=== PATIENT | female | born 1970 | race Two or more races ===

== ENCOUNTER 2021-05-27 10:46 | Emergency (ER) | payer MEDICAID, OTHER ==
[~2021-05-27] VITALS: Ht 167.6 cm; Wt 85.7 kg
[2021-05-27 12:10] LABS: Basophils # (auto) 0 10 ^3/uL (0-0.2); Eosinophils # (auto) 0.1 10 ^3/uL (0-0.8); Eosinophils % (auto) 3.2 % (0.0-7.0); Hematocrit 42.4 % (36.0-46.0); Hemoglobin 14.1 g/dL (12.2-16.2); Lymphocytes # (auto) 1.7 10 ^3/uL (0.4-5.4); Lymphocytes % (auto) 39.5 % (10.0-50.0); Mean Corpuscular Hemoglobin 29.3 pg (28.0-32.0); Mean Corpuscular Hgb Conc. 33.2 g/dL (32.0-36.0); Mean Corpuscular Volume 88.3 fL (80.0-100.0); Monocytes # (auto) 0.3 10 ^3/uL (0-1.3); Monocytes % (auto) 7.9 % (0.0-12.0); Neutrophils # (auto) 2.1 10 ^3/uL (1.6-8.6); Neutrophils % (auto) 48.4 % (37.0-80.0); Nucleated Red Blood Cells % 0.2 %; Red Blood Cells 4.81 10^6/uL (4.0-5.20); Red Cell Distribution Width 15.1 % (11.8-14.3); White Blood Cell 4.4 10^3/uL (4.4-10.8)
[2021-05-27 13:08] LABS: Albumin 3.8 g/dL (3.4-5.0); Potassium 4.4 mmol/L (3.5-5.1)
[2021-05-27 13:15] LABS: BUN/Creatinine Ratio 14.7; Bilirubin, Total 0.2 mg/dL (0.2-1.0); Calcium 9.1 mg/dL (8.5-10.1); Total Protein 7.8 g/dL (6.4-8.2)
[2021-05-27 13:52] LABS: Urine Bacteria FEW /hpf (None Seen); Urine Blood Negative /uL (Negative); Urine Mucus FEW (None Seen); Urine Specific Gravity 1.019 (1.001-1.035); Urine WBC 5 /hpf (0 - 5)
[2021-05-27 14:30] LABS: Amylase 225 U/L (25-115); Lipase 64 U/L (73-393)
[2021-05-27 18:08] VITALS: BP 113/48
== END 2021-05-27 18:09 | disposition home or self-care (01) ==
LOC: ER 10:46
DX: N39.0 Urinary tract infection, site not specified (principal); F12.10 Cannabis abuse, uncomplicated; Z90.710 Acquired absence of both cervix and uterus
CPT/HCPCS: 36415; 74176; 80053; 81001; 82150; 83690; 85025